=== PATIENT | male | born 1970 | race Caucasian/White ===

== ENCOUNTER 2018-06-08 19:57 | Emergency (ER) | payer OTHER ==
[~2018-06-08] VITALS: Ht 175.3 cm; Wt 93.0 kg
[2018-06-08 20:01] VITALS: BP 139/80
[2018-06-08] MEDS ORDERED: KETOROLAC 60 MG/2 ML VIAL. IM ONE (20:30)
[2018-06-08] MEDS ORDERED: CYCL10TA2 PO (20:36)
[2018-06-08] MEDS ORDERED: DICL50TA4 PO (20:36)
[2018-06-08] MEDS ORDERED: GABA600T7 PO (20:36)
[2018-06-08] MEDS ORDERED: METH4TAB2 PO (20:36)
--- NOTE | 2018-06-08 20:36 | PHYS DOC ---
Past Medical History Past Medical History: High Cholesterol (AVIVA NASH APRN) Past Surgical History: Cholecystectomy (AVIVA NASH APRN) Alcohol Use: Occasionally Drug Use: None (AVIVA NASH APRN) Adult General Chief Complaint Chief Complaint: HAND PROBLEM HPI HPI Patient is a 47 year old male with history of high cholesterol who presents today complaining of 8 out of 10 bilateral hand pain, back pain, leg pain, patient states his whole body hurts, symptoms going on for 3 days. He states he is tried icing, using heat, using [id number] icy hot, no relief. He is requesting a pain shot. Patient describes the pain on his hands as sometimes hot sometimes cold feeling. Denies any fever, denies any chest pain, shortness of breath, or any injury. (AVIVA NASH APRN) Review of Systems Review of Systems Constitutional: Denies fever or chills [] Eyes: Denies change in visual acuity, redness, or eye pain [] HENT: Denies nasal congestion or sore throat [] Respiratory: Denies cough or shortness of breath [] Cardiovascular: No additional information not addressed in HPI [] GI: Denies abdominal pain, nausea, vomiting, bloody stools or diarrhea [] : Denies dysuria or hematuria [] Musculoskeletal: Reports bilateral hand pain, back pain, leg pain, whole body hurts, Integument: Denies rash or skin lesions [] Neurologic: Denies headache, focal weakness or sensory changes [] All other systems were reviewed and found to be within normal limits, except as documented in this note. (AVIVA NASH APRN) Current Medications Current Medications Current Medications Medications (Trade) Dose Ordered Sig/Ezra Start Time Stop Time Status Last Admin Dose Admin Ketorolac Tromethamine (Toradol Im) 60 mg 1X ONCE 06/08/18 20:30 06/08/18 20:31 DC 06/08/18 20:40 60 MG (GAL DRIVER MD) Allergies Allergies Allergies Coded Allergies Type Severity Reaction Last Updated Verified No Known Drug Allergies 06/08/18 No (GAL DRIVER MD) Physical Exam Physical Exam Constitutional: Well developed, well nourished, no acute distress, non-toxic appearance. [] HENT: Normocephalic, atraumatic, bilateral external ears normal, oropharynx moist, no oral exudates, nose normal. [] Eyes: PERRLA, EOMI, conjunctiva normal, no discharge. [] Neck: Normal range of motion, no tenderness, supple, no stridor. [] Cardiovascular:Heart rate regular rhythm, no murmur [] Lungs & Thorax: Bilateral breath sounds clear to auscultation [] Abdomen: Bowel sounds normal, soft, no tenderness, no masses, no pulsatile masses. [] Skin: Warm, dry, no erythema, no rash. [] Back: No tenderness, no CVA tenderness. [] Extremities: No tenderness, no cyanosis, no clubbing, ROM intact, no edema. [] Neurologic: Alert and oriented X 3, normal motor function, normal sensory function, no focal deficits noted. [] Psychologic: Affect normal, judgement normal, mood normal. [] (AVIVA NASH APRN) Current Patient Data Vital Signs Vital Signs Date Time Temp Pulse Resp B/P (MAP) Pulse Ox O2 Delivery O2 Flow Rate FiO2 06/08/18 20:01 99.0 100 18 139/80 (99) 96 Room Air 99.0 (GAL DRIVER MD) EKG EKG [] (AVIVA NASH APRN) Radiology/Procedures Radiology/Procedures [] (AVIVA NASH APRN) Course & Med Decision Making Course & Med Decision Making Pertinent Labs and Imaging studies reviewed. (See chart for details) This is a 47-year-old patient who presented to the ED today initially complaining of hand pain stated he has leg pain, back pain, and pain throughout his body. No known injury. Pain appears musculoskeletal. Offered patient gabapentin, Medrol Dosepak, diclofenac and cyclobenzaprine, for home use , given Toradol in the ED. Requested he follows up with his own PCP. (AVIVA NASH APRN) Course & Med Decision Making Staff Physician Addendum: I was working in the ER during the course of this patient's visit. I was available for consultation as needed, but I was not directly involved in the care of this patient. (GAL DRIVER MD) Dragon Disclaimer Dragon Disclaimer This electronic medical record was generated, in whole or in part, using a voice recognition dictation system. (AVIVA NASH APRN) Departure Departure Impression: Primary Impression: Musculoskeletal pain Disposition: HOME, SELF-CARE Condition: STABLE Patient Instructions: Musculoskeletal Pain Additional Instructions: You were evaluated in the emergency room for musculoskeletal pain. Take the prescribed medications as ordered. Follow-up with your own doctor in 1-2 weeks. Scripts Gabapentin (GABAPENTIN) 600 Mg Tablet 600 MG PO TID, #30 TAB Prov: AVIVA NASH APRN 06/08/18 Cyclobenzaprine Hcl (CYCLOBENZAPRINE HCL) 10 Mg Tablet 1 TAB PO TID, #30 TAB Prov: AVIVA NASH APRN 06/08/18 Methylprednisolone (MEDROL) 4 Mg Tab.ds.pk 1 PKG PO UD, #1 PKG Prov: AVIVA NASH APRN 06/08/18 Diclofenac Sodium (DICLOFENAC SODIUM) 50 Mg Tablet.dr 1 TAB PO BID, #20 TAB 0 Refills Prov: AVIVA NASH APRN 06/08/18 AVIVA NASH APRN Jun 08, 2018 20:36 GAL DRIVER MD Jun 12, 2018 04:44
== END 2018-06-08 20:45 | disposition home or self-care (01) ==
LOC: ER 19:57
DX: M79.642 Pain in left hand (principal); M79.641 Pain in right hand; M79.604 Pain in right leg; M79.605 Pain in left leg; M54.9 Dorsalgia, unspecified; E78.00 Pure hypercholesterolemia, unspecified; Z90.49 Acquired absence of other specified parts of digestive tract
CPT/HCPCS: 96372; 99283; J1885